=== PATIENT | female | born 1950 | race Caucasian/White ===

== ENCOUNTER → 2017-05-04 | Outpatient (CLI) | payer MEDICARE, BC ==
[~2017-05-04] MED LIST: ALPR1TAB2 PO; AMLO5TAB4 PO; OXYC1TAB9 PO; SITA1TAB PO; VENL150C PO
[2017-05-04 09:42] LABS: ALANINE AMINOTRANSFERASE 22 U/L (12-78); ALBUMIN 4.2 g/dL (3.4-5.0); ANION GAP 8 mmol/L (5-15); CALCIUM 9.1 mg/dL (8.5-10.1); CHLORIDE 103 mmol/L (98-107); CREATININE 1.08 mg/dL (0.55-1.02)
[2017-05-04 09:44] LABS: ALKALINE PHOSPHATASE 90 U/L (45-117); BILIRUBIN,TOTAL 0.5 mg/dL (0.2-1.0)
== END | disposition home or self-care (01) ==
LOC: STAR 08:21
PROVIDERS: ATTEND Surgery
DX: Z01.818 Encounter for other preprocedural examination (principal); R00.0 Tachycardia, unspecified; K40.90 Unilateral inguinal hernia, without obstruction or gangrene, not specified as recurrent; R10.30 Lower abdominal pain, unspecified
CPT/HCPCS: 36415; 80053; 93005

== ENCOUNTER 2017-05-13 08:24 | Day surgery (SDC) | payer MEDICARE, BC ==
[~2017-05-13] VITALS: Ht 170.2 cm; Wt 81.3 kg
[~2017-05-13 08:24] MED LIST changes: +BUPIVACAINE/PF 0.5% ONE; +EPINEPHRINE 1 MG/ML, 1ML ONE
[2017-05-13] MEDS ORDERED: LACTATED RINGERS 1,000 ML IV SCH (09:05)
[2017-05-13 09:09] VITALS: BP 116/73
[2017-05-13] MEDS ORDERED: MIDAZOLAM 1 MG/ML, 2ML ONE (09:38)
[2017-05-13] MEDS ORDERED: PROPOFOL 10 MG/ML, 20ML ONE (09:39)
[2017-05-13] MEDS ORDERED: FENTANYL PF 250 MCG/5ML ONE (09:39)
[2017-05-13] MEDS ORDERED: ROCURONIUM 10 MG/ML,10ML ONE (09:40)
[2017-05-13] MEDS ORDERED: GLYCOPYRROLATE 0.4 MG/2 ML, 2ML ONE (09:40)
[2017-05-13] MEDS ORDERED: NEOSTIGMINE 1 MG/ML, 10ML ONE (09:40)
[2017-05-13] MEDS ORDERED: ONDANSETRON 2MG/ML, 2ML ONE (09:41)
[2017-05-13] MEDS ORDERED: DEXAMETHASONE 4 MG/ML, 1ML ONE ×2 (09:41)
[2017-05-13] MEDS ORDERED: CIPROFLOXACIN/PMX 400MG/200ML 200 ML ONE (10:35)
[2017-05-13] MEDS ORDERED: MEPERIDINE/PF 25MG/0.5ML IVPush PRN (11:00)
[2017-05-13] MEDS ORDERED: hydrALAzine 20 MG/ML, 1ML IV PRN (11:00)
[2017-05-13] MEDS ORDERED: ACETAMINOPHEN 325 MG TABLET PO PRN (11:00)
[2017-05-13] MEDS ORDERED: PROMETHAZINE 12.5 MG SUPP PR PRN (11:00)
[2017-05-13] MEDS ORDERED: FENTANYL PF 100 MCG/2ML IV PRN (11:00)
[2017-05-13] MEDS ORDERED: ONDANSETRON 2MG/ML, 2ML IVPush PRN (11:00)
[2017-05-13] MEDS ORDERED: LABETALOL 5MG/ML, 20ML IV PRN (11:00)
[2017-05-13] MEDS ORDERED: HYDROmorphone 1 MG/ML, 1ML IV PRN (11:00)
[2017-05-13] MEDS ORDERED: OXYcodone 5 MG/5 ML ORAL.SOL UDC PO PRN (11:00)
[2017-05-13] MEDS ORDERED: ACETAMINOPHEN 650 MG/20.3 ML UDC ONE (12:01)
[2017-05-13] MEDS ORDERED: OXYcodone 5 MG/5 ML ORAL.SOL UDC ONE (12:01)
[2017-05-13] MEDS ORDERED: HYDROmorphone 2 MG/ML, 1ML ONE (12:20)
[2017-05-13] MEDS ORDERED: OXYcodone/APAP 5/325MG TABLET ONE (15:35)
[2017-05-13] MEDS ORDERED: OXYcodone/APAP 5/325MG TABLET PO PRN (16:00)
== END 2017-05-13 16:00 | disposition home or self-care (01) ==
LOC: OUT 08:24
PROVIDERS: ATTEND Surgery
DX: K41.91 Unilateral femoral hernia, without obstruction or gangrene, recurrent (principal); K40.90 Unilateral inguinal hernia, without obstruction or gangrene, not specified as recurrent; I10 Essential (primary) hypertension; F17.210 Nicotine dependence, cigarettes, uncomplicated; Z88.1 Allergy status to other antibiotic agents; Z88.0 Allergy status to penicillin; Z88.8 Allergy status to other drugs, medicaments and biological substances; Z72.89 Other problems related to lifestyle
CPT/HCPCS: 49505; 49555; 82962; C1781; J0171; J0744; J1170; J2250; J2405; J2704; J2710; J3010; J3490; J7120; J1100

== ENCOUNTER 2020-02-06 14:20 | Inpatient (IN) | payer MEDICARE, BC ==
[~2020-02-06] VITALS: Ht 170.2 cm; Wt 81.7 kg
[~2020-02-06 14:20] MED LIST changes: -BUPIVACAINE/PF 0.5% ONE; -EPINEPHRINE 1 MG/ML, 1ML ONE; +OXYC1TAB18 PO; -OXYC1TAB9 PO
[2020-02-06] MEDS ORDERED: SODIUM CHLORIDE FLUSH 10ML SYR IVF ONE (15:00)
[2020-02-06 15:14] LABS: BASOPHILS % (AUTO) 1 % (0-1); EOSINOPHILS % (AUTO) 3 % (1-7); LYMPHOCYTES % (AUTO) 34 % (22-44); MEAN CORPUSCULAR HEMOGLOBIN 32.1 pg (27.0-34.8); MEAN CORPUSCULAR HGB CONC 33.6 g/dL (32.4-35.8); MEAN PLATELET VOLUME 8.4 fL (7.4-10.4); MONOCYTES % (AUTO) 7 % (2-9); NEUTROPHILS % (AUTO) 56 % (42-75); PLATELET COUNT 288 x10^3/uL (130-400); RED BLOOD COUNT 4.56 x10^6/uL (3.82-5.3); RED CELL DISTRIBUTION WIDTH 13.3 % (9.6-15.2)
--- NOTE | 2020-02-06 15:14 | NUR ---
PIV INTITATED. PT TO ALL MONITORS.
[2020-02-06 15:16] LABS: MD NO
[2020-02-06 15:18] LABS: ALANINE AMINOTRANSFERASE 20 U/L (12-78); ANION GAP 6 mmol/L (5-15); CALCIUM 9.3 mg/dL (8.5-10.1); CHLORIDE 101 mmol/L (98-107); CREATININE 1.77 mg/dL (0.55-1.02)
[2020-02-06 15:28] LABS: ALKALINE PHOSPHATASE 86 U/L (45-117); BILIRUBIN,TOTAL 0.3 mg/dL (0.2-1.0); TOTAL PROTEIN 7.7 g/dL (6.4-8.2); TROPONIN I < 0.015 ng/mL (0.000-0.045)
[2020-02-06] MEDS ORDERED: DILTIAZEM 5 MG/ML, 5ML ONE (16:17)
--- NOTE | 2020-02-06 16:19 | NUR ---
PT WITH HR 140-150 ON MONITIOR, EKG ORDERED, MEDICATION ORDERED BY ERP, PER PT NO HX AFLUTTER/AFIB. MEDICATION ADMIN, PT TOLERATED WELL. HR NOW [id number]
[2020-02-06] MEDS ORDERED: DILTIAZEM 5 MG/ML, 5ML IVPush ONE ×2 (16:30→18:00)
[2020-02-06] MEDS ORDERED: SODIUM CHLORIDE 0.9% 1,000ML IVBOLUS ONE (17:30)
--- NOTE | 2020-02-06 17:41 | NUR ---
ADMITTING MD IN TO EVAL PT, WILL CALL REPORT.
--- NOTE | 2020-02-06 17:59 | NUR ---
ATTEMPT X2 TO CALL REPORT
[2020-02-06] MEDS ORDERED: ONDANSETRON ODT 4 MG PO PRN (18:00)
[2020-02-06] MEDS ORDERED: ONDANSETRON 2MG/ML, 2ML IVPush PRN (18:00)
[2020-02-06] MEDS ORDERED: DILTIAZEM 60 MG TABLET PO ONE (18:00)
--- NOTE | 2020-02-06 18:08 | NUR ---
REPORT CALLED TO RECIEVING RN
[2020-02-06] MEDS ORDERED: ENOXAPARIN 30 MG/0.3 ML SQ SCH (20:00)
[2020-02-06 20:23] LABS: TROPONIN I < 0.015 ng/mL (0.000-0.045)
[2020-02-06] MEDS: ALPRazolam 1MG TAB PO SCH ×2 (21:00→21:09)
[2020-02-06] MEDS: NS + 20MEQ KCL 1,000 ML IV SCH (21:10)
[2020-02-06 21:40] VITALS: BP 113/72
[2020-02-07 01:59] VITALS: BP 122/69
[2020-02-07 05:52] LABS: BASOPHILS % (AUTO) 1 % (0-1); EOSINOPHILS % (AUTO) 4 % (1-7); LYMPHOCYTES % (AUTO) 30 % (22-44); MEAN CORPUSCULAR HEMOGLOBIN 31.3 pg (27.0-34.8); MEAN CORPUSCULAR HGB CONC 32.6 g/dL (32.4-35.8); MEAN PLATELET VOLUME 8.7 fL (7.4-10.4); MONOCYTES % (AUTO) 8 % (2-9); NEUTROPHILS % (AUTO) 58 % (42-75); PLATELET COUNT 246 x10^3/uL (130-400); RED BLOOD COUNT 4.37 x10^6/uL (3.82-5.3); RED CELL DISTRIBUTION WIDTH 13.2 % (9.6-15.2)
[2020-02-07 05:57] LABS: ANION GAP 7 mmol/L (5-15); CALCIUM 9.1 mg/dL (8.5-10.1); CHLORIDE 110 mmol/L (98-107)
[2020-02-07 06:00] LABS: MD NO
[2020-02-07 06:52] VITALS: BP 147/76
[2020-02-07] MEDS: NS + 20MEQ KCL 1,000 ML IV SCH ×3 (07:15→23:00)
[2020-02-07] MEDS ORDERED: AMLODIPINE 5 MG TABLET PO SCH (09:00)
[2020-02-07] MEDS ORDERED: TEMPLATE NON-FORMULARY MED. (Sitagliptin Phos/Metformin Hcl** (Janumet 50-500 Mg Tablet**) PO SCH (09:00)
[2020-02-07] MEDS: VENLAFAXINE XR 37.5MG CAP.ER.24H PO SCH (09:36)
[2020-02-07] MEDS: ALPRazolam 1MG TAB PO SCH ×2 (09:41→19:52)
[2020-02-07] MEDS: OXYcodone/APAP 10/325MG TABLET PO PRN (09:49)
[2020-02-07] MEDS ORDERED: GLUCAGON 1 MG IM PRN (12:30)
[2020-02-07] MEDS ORDERED: METOPROLOL TARTRATE 25 MG TAB PO ONE (12:30)
[2020-02-07] MEDS ORDERED: DEXTROSE 50%, 50ML SYRINGE IVPush PRN (12:30)
[2020-02-07] MEDS ORDERED: DEXTROSE 4 GM TAB.CHEW PO PRN (12:30)
[2020-02-07] MEDS: APIXABAN 5 MG TABLET PO SCH ×2 (13:43→19:52)
[2020-02-07] MEDS ORDERED: OMNIPAQUE 350 MG/ML, 75ML BOTTLE ONE (14:04)
[2020-02-07 14:50] VITALS: BP 132/73
[2020-02-07] MEDS: INSULIN LISPRO 100 UNITS/ML, PEN SQ-INSULIN SCH ×2 (16:49→21:00)
[2020-02-07] MEDS: METOPROLOL TARTRATE 25 MG TAB PO SCH (18:19)
[2020-02-07 19:51] VITALS: BP 112/58
[2020-02-07] MEDS: SODIUM CHLORIDE FLUSH 10ML SYR IVF SCH (21:00)
[2020-02-07 23:56] VITALS: BP 95/57
[2020-02-08 00:04] VITALS: BP 101/55
[2020-02-08 01:54] VITALS: BP 109/50
[2020-02-08] MEDS: METOPROLOL TARTRATE 25 MG TAB PO SCH (06:23)
[2020-02-08] MEDS: INSULIN LISPRO 100 UNITS/ML, PEN SQ-INSULIN SCH ×2 (07:00→11:00)
[2020-02-08 07:37] VITALS: BP 146/80
[2020-02-08] MEDS: NS + 20MEQ KCL 1,000 ML IV SCH (07:56)
[2020-02-08] MEDS: VENLAFAXINE XR 37.5MG CAP.ER.24H PO SCH (07:57)
[2020-02-08] MEDS: APIXABAN 5 MG TABLET PO SCH (07:57)
[2020-02-08] MEDS: SODIUM CHLORIDE FLUSH 10ML SYR IVF SCH (07:57)
[2020-02-08] MEDS: ALPRazolam 1MG TAB PO SCH (08:00)
[2020-02-08] MEDS ORDERED: AMLODIPINE 5 MG TABLET PO SCH (09:00)
[2020-02-08 12:09] VITALS: BP 144/74
[2020-02-08 12:15] LABS: CALCIUM 8.8 mg/dL (8.5-10.1); CREATININE 0.89 mg/dL (0.55-1.02)
[2020-02-08] MEDS ORDERED: APIX5TAB PO (12:36)
[2020-02-08] MEDS ORDERED: METO25TA35 PO (12:36)
[2020-02-08 12:39] LABS: ANION GAP 7 mmol/L (5-15); CHLORIDE 111 mmol/L (98-107)
[2020-02-08] MEDS: OXYcodone/APAP 10/325MG TABLET PO PRN (13:05)
== END 2020-02-08 14:18 | disposition home or self-care (01) | DRG 308 ==
LOC: ED 14:56 → EDIP 17:13 → 5SO 19:32 → DCLOUNGE 02-08 14:01
PROVIDERS: ADMIT Hospitalist; ATTEND Internal Medicine
DX: I48.91 Unspecified atrial fibrillation (principal); N17.0 Acute kidney failure with tubular necrosis; D68.69 Other thrombophilia; I47.1 Supraventricular tachycardia; I48.92 Unspecified atrial flutter; E11.9 Type 2 diabetes mellitus without complications; F17.200 Nicotine dependence, unspecified, uncomplicated; F32.9 Major depressive disorder, single episode, unspecified; F41.9 Anxiety disorder, unspecified; I10 Essential (primary) hypertension; Z79.01 Long term (current) use of anticoagulants; Z90.710 Acquired absence of both cervix and uterus; Z88.0 Allergy status to penicillin; Z88.2 Allergy status to sulfonamides
CPT/HCPCS: 36415; 71045; 71275; 80048; 80053; 82962; 83735; 84443; 84484; 85025; 85379; 93005; 93306; G0378; J1650; J3480; Q9967; J1815; J7030

== ENCOUNTER → 2020-02-21 | Outpatient (CLI) | payer MEDICARE, BC ==
[~2020-02-21] MED LIST changes: +APIX5TAB PO; +METO25TA35 PO; +REGADENOSON 0.4 MG/5 ML SYRINGE ONE
== END | disposition home or self-care (01) ==
LOC: CFH 12:06
PROVIDERS: ATTEND Internal Medicine Cardiovascular Disease
DX: I48.91 Unspecified atrial fibrillation (principal); I47.1 Supraventricular tachycardia
CPT/HCPCS: 78452; 93017; A9502; J2785

== ENCOUNTER → 2020-04-02 | Outpatient (CLI) | payer MEDICARE, BC ==
[~2020-04-02] MED LIST changes: -REGADENOSON 0.4 MG/5 ML SYRINGE ONE
[2020-04-02 09:17] LABS: ALANINE AMINOTRANSFERASE 19 U/L (12-78); ALBUMIN 3.9 g/dL (3.4-5.0); ANION GAP 4 mmol/L (5-15); CALCIUM 9.1 mg/dL (8.5-10.1); CHLORIDE 108 mmol/L (98-107); CHOLESTEROL, TOTAL 254 mg/dL (140-239); CREATININE 1.47 mg/dL (0.55-1.02); TRIGLYCERIDES 348 mg/dL (50-200); VLDL CHOLESTEROL 70 mg/dL (0-25)
[2020-04-02 09:19] LABS: ALKALINE PHOSPHATASE 76 U/L (45-117); BILIRUBIN,TOTAL 0.2 mg/dL (0.2-1.0); CHOL/HDL RATIO 5.3; HDL CHOL % 19 % (28-40); HDL CHOLESTEROL (DIRECT) 48 mg/dL (40-60); LDL CHOLESTEROL,CALCULATED 136 mg/dL (54-169); LDL/HDL RATIO 2.8 (0.5-3.0); TOTAL PROTEIN 7.5 g/dL (6.4-8.2)
== END | disposition home or self-care (01) ==
LOC: LAB 08:51
PROVIDERS: ATTEND Internal Medicine Cardiovascular Disease
DX: I10 Essential (primary) hypertension (principal); E11.9 Type 2 diabetes mellitus without complications
CPT/HCPCS: 36415; 80053; 80061